=== PATIENT | female | born 1955 | race Caucasian/White ===

== ENCOUNTER 2016-11-22 12:45 | Emergency (ER) | payer BC ==
[~2016-11-22] VITALS: Ht 165.1 cm; Wt 64.4 kg
[~2016-11-22 12:45] MED LIST: PROZAC40 MG PO; SYNTHROID25 MCG; SYNTHROID88 MCG PO
[2016-11-22] MEDS ORDERED: SUBOXONE 2 MG-1 EACH SL (13:16)
[2016-11-22 13:33] LABS: HEMATOCRIT 35.7 % (36.0-46.0); MCH 29.9 PG (29.0-34.0); MCHC 33.6 G/DL (30.0-36.0); MEAN PLAT.VOLUME 8.9 uM^3 (9.5-12.4); PLATELET COUNT 301 K/uL (156-360); RBC DIS.WIDTH-CV 12.1 % (11.8-14.6); RBC DIS.WIDTH-SD 38.7 % (39-53); RED BLOOD COUNT 4.01 M/uL (3.80-5.20); WHITE BLOOD COUNT 4.7 K/uL (4.1-10.2)
[2016-11-22 13:44] LABS: COLOR ORANGE ((YELLOW)); LEUKOCYTES SMALL; SPECIFIC GRAVITY 1.015 (1.000-1.030)
[2016-11-22 13:45] LABS: ADD MIUA? YES; BLOOD NEGATIVE; GLUCOSE (STRIP) NEGATIVE
[2016-11-22 13:46] LABS: CHLORIDE 102 mEq/L (99-109); POTASSIUM 3.9 mEq/L (3.7-5.4); SODIUM 135 mEq/L (136-147)
[2016-11-22 13:48] LABS: GLUCOSE 122 mg/dL (70-99)
[2016-11-22 13:49] LABS: ANION GAP 11 MEQ/L (2-14)
[2016-11-22 13:50] LABS: TOTAL BILIRUBIN 0.2 mg/dL (0.0-1.0)
[2016-11-22 13:51] LABS: BACTERIA 1+ /HPF; CASTS NONE SEEN /LPF; CRYSTALS NONE SEEN; EPITHELIAL CELLS 2+ /HPF; MUCUS NONE SEEN /LPF; RED BLOOD CELLS 0-5 /HPF (0-5); UCUL ADDED? NO
[2016-11-22 13:51] LABS: ALKALINE PHOSPHATASE 65 IU/L (3-129)
[2016-11-22 13:52] LABS: GFR ESTIMATE (CALCULATED) 53 mL/min/
[2016-11-22 13:53] LABS: UREA NITROGEN (BUN) 12 mg/dL (9-23)
[2016-11-22 13:55] LABS: LIPASE 18 U/L (1.0-51.0)
[2016-11-22] MEDS ORDERED: ZOFRAN ODT4 MG PO (14:24)
[2016-11-22] MEDS ORDERED: TORADOL10 MG PO (14:24)
[2016-11-22] MEDS ORDERED: PROTONIX40 MG PO (14:24)
[2016-11-22] MEDS ORDERED: KEFLEX500 MG PO (14:49)
[2016-11-22 15:44] VITALS: BP 124/61
== END 2016-11-22 15:45 | disposition home or self-care (01) ==
LOC: EME 12:45
PROVIDERS: Nurse Practitioner Family
DX: N12 Tubulo-interstitial nephritis, not specified as acute or chronic (principal); R11.2 Nausea with vomiting, unspecified; R19.7 Diarrhea, unspecified; E03.9 Hypothyroidism, unspecified; Z91.041 Radiographic dye allergy status
CPT/HCPCS: 80053; 81003; 83605; 83690; 85027; 87086; 99281; 99285; J0696; J1885; J2405; J7030; J7050